=== PATIENT | female | born 1990 | race Caucasian/White ===

== ENCOUNTER 2019-10-09 07:10 | Emergency (ER) | payer OTHER ==
[~2019-10-09] VITALS: Ht 170.2 cm; Wt 65.8 kg
[~2019-10-09 07:10] MED LIST: AUGMENTIN 875875 M1 PO; FLOXIN OTI0.3 %/5 M1 OT; IBUPROFEN 800800 M1 PO; NOHOMEMEDICATIONS
[2019-10-09] MEDS ORDERED: AZITHROMYCIN 2250 MG PO (07:29)
[2019-10-09] MEDS ORDERED: IBUPROFEN 800800 MG PO (07:29)
[2019-10-09 07:40] VITALS: BP 109/76
== END 2019-10-09 07:41 | disposition home or self-care (01) ==
LOC: M.ERS 07:10
DX: J02.9 Acute pharyngitis, unspecified (principal)